=== PATIENT | female | born 1990 ===

== ENCOUNTER 2017-08-01 09:15 | Emergency (ER) | payer MEDICAID ==
[2017-08-01 09:16] VITALS: BMI 30.4
[2017-08-01] MEDS ORDERED: Sodium Chloride 0.9% 1,000 ML IV ONE ×2 (09:47→09:49)
--- NOTE | 2017-08-01 10:23 | C.PDOC ---
History Of Present Illness Patient is a 27 y/o female, with a Hx of kidney stones and rheumatoid arthritis , who presents to the ED with a complaint of abdominal pain that radiates to the back for the last year. PMD Dr Nichols ordered outpatient CT abdomen 3 weeks ago finding narrowing of colon, but read as possible congenital. Patient was referred to Dr Solis for further evaluation and has appointment 08/13. This morning, pain was worse, prompting visit to ED. Admits 1 episode of vomiting this morning and constipation over the last few days. Time Seen by Provider: 08/01/17 09:30 Chief Complaint (Nursing): Abdominal Pain History Per: Patient History/Exam Limitations: no limitations Onset/Duration Of Symptoms: Days (1 year abdominal pain; few days constipation) Current Symptoms Are (Timing): Still Present Radiation Of Pain To:: Back Associated Symptoms: Vomiting (this morning x1), Constipation Recent travel outside of the [place]: No Past Medical History Reviewed: Historical Data, Nursing Documentation, Vital Signs Vital Signs: Last Vital Signs Temp 98.8 F 08/01/17 12:53 Pulse 98 H 08/01/17 12:53 Resp 14 08/01/17 12:53 BP 118/72 08/01/17 12:53 Pulse Ox 98 08/01/17 12:53 - Medical History PMH: Kidney Stones, Rheumatoid Arthritis - [facility] Procedures ARTIF RUPT MEMBRANES NEC (05/16/13) CYSTOSCOPY NEC (09/07/13) DPT ADMINISTRATION (05/16/13) MONITORING NOS (03/20/14) INFLUENZA VACCINATION (05/16/13) MANUAL ASSIST DELIV NEC (03/20/14) MMR ADMINISTRATION (05/16/13) REPAIR OB LACERATION NEC (05/16/13) ULTRASON FRAGMENT-STONE (09/07/13) URETERAL CATHETERIZATION (09/07/13) Family History: States: No Known Family Hx - Social History Hx Tobacco Use: No Hx Alcohol Use: No Hx Substance Use: No - Immunization History Hx Tetanus Toxoid Vaccination: No Hx Influenza Vaccination: No Hx Pneumococcal Vaccination: No Review Of Systems Constitutional: Negative for: Fever, Chills Gastrointestinal: Positive for: Vomiting (x1), Abdominal Pain, Constipation Physical Exam - Physical Exam Appears: Well, Non-toxic, No Acute Distress Skin: Normal Color, Warm, Dry Head: Atraumatic, Normacephalic Oral Mucosa: Moist Chest: Symmetrical Cardiovascular: Rhythm Regular, No Murmur Respiratory: Normal Breath Sounds, No Rales, No Rhonchi, No Wheezing Gastrointestinal/Abdominal: Soft, No Tenderness Back: Normal Inspection, No CVA Tenderness Extremity: Normal ROM (x4) Neurological/Psych: Oriented x3, Normal Speech, Normal Cognition ED Course And Treatment - Laboratory Results Result Diagrams: 08/01/17 10:38 08/01/17 10:38 Lab Interpretation: Normal Urine POC: Negative O2 Sat by Pulse Oximetry: 100 Pulse Ox Interpretation: Normal - Other Rad Obs series X-Ray: Interpreted by Me, Viewed By Me Interpretation: PROCEDURE: Radiographs of the chest and abdomen (obstructive series). HISTORY: Abd Pain. COMPARISON: No prior. TECHNIQUE: AP radiograph of the chest, with upright and supine radiographs of the abdomen. FINDINGS: CHEST: Lungs: Clear. Cardiovascular: Normal size heart. No pulmonary vascular congestion. Pleura: No pleural fluid. No pneumothorax. Other findings: None. ABDOMEN AND PELVIS: Bowel: Unremarkable bowel gas pattern. No evidence of mechanical obstruction. Free air: None. Bones: Unremarkable. Other findings: None. IMPRESSION: Unremarkable radiographs of chest and abdomen. No evidence of mechanical bowel obstruction. Progress Note: Obs series, blood work, POC urine, HCG urine, and UA ordered. Pepcid, toradol, zofran, IV fluids administered. On re-evaluation abdomen soft non-tender,. Patient advised to follow up with GI for further evaluation Reassessment Condition: Improved Disposition Counseled Patient/Family Regarding: Studies Performed, Diagnosis, Need For Followup, Rx Given - Disposition Referrals: Guanako Solis MD [Staff Provider] - Disposition: HOME/ ROUTINE Disposition Time: 12:50 Condition: IMPROVED Additional Instructions: Return to ED if any increase symptoms Prescriptions: Famotidine/Ca Carb/Mag Hydrox [Pepcid Complete Tablet Chew] 1 each PO BID #20 tab.chew Instructions: Acute Abdomen (Belly Pain), Adult (DC) Forms: [facility] (Bengali) - POA Present On Arrival: None - Clinical Impression Clinical Impression: Abdominal pain - Scribe Statement The provider has reviewed the documentation as recorded by the Scribe Megan Reeves All medical record entries made by the Scribe were at my direction and personally dictated by me. I have reviewed the chart and agree that the record accurately reflects my personal performance of the history, physical exam, medical decision making, and the department course for this patient. I have also personally directed, reviewed, and agree with the discharge instructions and disposition.
[2017-08-01] MEDS ORDERED: Sodium Chloride 0.9% 1,000 ML ONE (10:32)
--- NOTE | 2017-08-01 10:35 | RAD ---
PROCEDURE: Radiographs of the chest and abdomen (obstructive series) HISTORY: Abd Pain COMPARISON: No prior. TECHNIQUE: AP radiograph of the chest, with upright and supine radiographs of the abdomen. FINDINGS: CHEST: Lungs: Clear. Cardiovascular: Normal size heart. No pulmonary vascular congestion. Pleura: No pleural fluid. No pneumothorax. Other findings: None. ABDOMEN AND PELVIS: Bowel: Unremarkable bowel gas pattern. No evidence of mechanical obstruction. Free air: None. Bones: Unremarkable. Other findings: None. IMPRESSION: Unremarkable radiographs of chest and abdomen. No evidence of mechanical bowel obstruction.
[2017-08-01 10:55] LABS: BASO % 0.7 % (0.0-2.0); EOS # 0.2 K/uL (0.0-0.7); EOS % 3.6 % (0.0-4.0); HEMOGLOBIN 12.9 g/dL (11.0-16.0); LYMPH # 1.6 K/uL (1.0-4.3); LYMPH % 31.6 % (20.0-40.0); MEAN CELL VOLUME 88.7 fL (81.0-99.0); MEAN CORPUSCULAR HEMOGLOBIN 30.7 pg (27.0-31.0); MEAN CORPUSCULAR HGB CONC 34.6 g/dL (33.0-37.0); MEAN PLATELET VOLUME 10.4 fL (7.2-11.7); MONO # 0.5 K/uL (0.0-0.8); MONO % 9.6 % (0.0-10.0); NEUT # 2.7 K/uL (1.8-7.0); NEUT % 54.5 % (50.0-75.0); NRBC % 0.1 % (0.0-2.0); RBC 4.2 Mil/uL (3.80-5.20); RED CELL DISTRIBUTION WIDTH 12.8 % (11.5-14.5); WHITE BLOOD COUNT 4.9 K/uL (4.8-10.8)
[2017-08-01 11:09] LABS: SQUAMOUS EPITHIAL < 1 /hpf (0-5); URINE BACTERIA RARE (<OCC); URINE BILIRUBIN NEGATIVE (NEGATIVE); URINE BLOOD 3+ (NEGATIVE); URINE CLARITY Hazy (Clear); URINE COLOR Yellow (YELLOW); URINE GLUCOSE (UA) NORMAL (Normal); URINE LEUKOCYTE ESTERASE NEG Leu/uL (Negative); URINE PROTEIN NEGATIVE (NEGATIVE); URINE UROBILINOGEN NORMAL mg/dL (0.2-1.0)
[2017-08-01 11:11] LABS: ALB/GLOB RATIO 1.3 (1.0-2.1); ALT/SGPT 19 U/L (9-52); AST/SGOT 21 U/L (14-36); BLOOD UREA NITROGEN 12 mg/dL (7-17); CALCIUM 9.2 mg/dl (8.6-10.4); GFR AFRICAN-AMERICAN > 60; GFR NON-AFRICAN AMERICAN > 60; LIPASE 44 U/L (23-300)
[2017-08-01 11:12] LABS: HCG,QUALITATIVE URINE NEGATIVE (NEGATIVE)
[2017-08-01 12:54] VITALS: BP 118/72; PULSE 98; RESP 14; TEMP 98.8
[2017-08-01 17:38] VITALS: O2SAT 100
== END 2017-08-01 13:04 | disposition home or self-care (01) ==
LOC: C.ER 09:15
DX: R10.9 Unspecified abdominal pain (principal)
CPT/HCPCS: 74022; 80053; 81001; 83690; 84703; 85025; 96361; 96374; 96375; 99284; J1885; J2405; J7030

== ENCOUNTER 2017-08-16 09:10 | Day surgery (SDC) | payer MEDICAID ==
[2017-08-02 10:03] VITALS: BMI 30.4
[2017-08-16 10:07] VITALS: O2SAT 100
[2017-08-16] MEDS ORDERED: Lidocaine Hydrochloride 5 ML INJ ONE (10:36)
[2017-08-16] MEDS ORDERED: Propofol 10 mg/ml Inj (20 ML) ONE ×2 (10:36→10:51)
[2017-08-16 11:35] VITALS: RESP 16
[2017-08-16 12:10] VITALS: BP 11/66; PULSE 56; TEMP 97.8
== END 2017-08-16 12:16 | disposition home or self-care (01) ==
LOC: C.ENDO 09:10
PROVIDERS: ATTEND Internal Medicine Gastroenterology
DX: R93.3 Abnormal findings on diagnostic imaging of other parts of digestive tract (principal); K64.8 Other hemorrhoids
CPT/HCPCS: 45378; 84703; J2704